=== PATIENT | female | born 1940 | race Caucasian/White ===

== ENCOUNTER 2016-10-27 08:24 | Inpatient (IN) ==
[2016-10-27] MEDS ORDERED: ASPIRIN PO STA (08:53)
[2016-10-27 09:33] LABS: MANUAL DIFF NEEDED? NO
--- NOTE | 2016-10-27 09:34 | Diag Imaging Result Doc PS360 ---
EXAM: CHEST-PORTABLE HISTORY: CP TECHNIQUE: AP portable upright chest at 0900 COMMENT: There are sternotomy wires. The lungs appear to be clear and stable since 07/03/2015. IMPRESSION: Stable chest. Electronically signed by Joseph Patel 10/27/2016 9:31 AM
--- NOTE | 2016-10-27 09:42 | EKG Report ---
Test Performed on : 10/27/2016 08:29:52 AM Test Reason : cp Blood Pressure : / mmHG Vent. Rate : 083 BPM Atrial Rate : 083 BPM P-R Int : 168 ms QRS Dur : 120 ms QT Int : 404 ms P-R-T Axes : 078 -34 078 degrees QTc Int : 474 ms Sinus rhythm. with premature supraventricular complexes. Left axis deviation Nonspecific intraventricular conduction delay Abnormal ECG No previous ECGs available Unconfirmed Result
[2016-10-27 09:48] LABS: PROTIME 10.5 Seconds (9.2-11.7); PTT 27.3 Seconds (22.0-36.0)
[2016-10-27 09:50] LABS: URINE CULTURE NEEDED? NO; URINE MICRO REVIEW NEEDED? NO; URINE SOURCE CLEAN CATCH
[2016-10-27 09:51] LABS: ALBUMIN 4.2 g/dL (3.5-5.0); CALCIUM 9.2 mg/dL (8.8-10.2); MAGNESIUM 1.9 mg/dL (1.5-2.7); POTASSIUM 4.5 mmol/L (3.5-5.1); TOTAL BILIRUBIN 0.61 mg/dL (0.20-1.00); TOTAL PROTEIN 7.3 g/dL (6.3-8.3)
[2016-10-27 09:56] LABS: BASO% 0.7 % (0.0-0.8); EOS# 0.17 X1000 (0.0-0.7); EOS% 2.5 % (0.0-10.0); HEMOGLOBIN 12.6 g/dL (12.0-16.0); LYMPH# 1.58 X1000 (1.2-3.4); LYMPH% 23.7 % (20.5-51.1); MCH 32.1 PG (27-31); MCHC 33.2 g/dL (33-37); MCV 96.9 FL (81-99); MONO# 0.77 X1000 (0.11-0.59); MONO% 11.5 % (1.7-9.3); MPV 10.2 FL (7.4-10.4); NEUT% 61.6 % (42.2-75.2); PLT 181 X1000 (130-400); RBC 3.92 XMIL (4.2-5.4)
[2016-10-27 10:00] LABS: BILIRUBIN URINE NEGATIVE (NEGATIVE); BLOOD URINE SMALL (NEGATIVE); COLOR YELLOW; GLUCOSE URINE NEGATIVE (NEGATIVE); LEUKOCYTES URINE NEGATIVE (NEGATIVE); NITRITE URINE NEGATIVE (NEGATIVE); PROTEIN URINE NEGATIVE (NEGATIVE); SP GRAVITY URINE 1.006; TURBIDITY URINE CLEAR (CLEAR); UROBILINOGEN URINE NORMAL (NORMAL)
[2016-10-27 10:02] LABS: UR EPITHELIAL CELLS <10 /HPF (<10); URINE BACTERIA 1+ /HPF; URINE RBC <10 /HPF (<10); URINE WBC <10 /HPF (<10)
[2016-10-27 10:07] LABS: CK INDEX 2.6 (0.0-2.5); CK-MB 4.91 ng/mL (0.0-5.0)
[2016-10-27] MEDS ORDERED: LOPRESSOR IV ONE (10:17)
--- NOTE | 2016-10-27 10:19 | PROVIDER DOCUMENTATION ---
This chart was entered by Saravanan Zhou Scribe, acting as scribe for Yarely Cervantes MD. HPI-Chest Pain - General Chief Complaint: Chest Pain Stated Complaint: CP,TIGNHTNESS,BACK,ARM,NECK PAIN Time Seen by Provider: 10/27/16 08:43 Source: patient Allergies/Adverse Reactions: Patient Allergies Allergy/AdvReac Type Severity Reaction Status Date / Time hydrocodone bitartrate * Allergy SWELLING Verified 10/27/16 09:01 [From Lorcet (hydrocodone)] morphine Allergy SWELLING Verified 10/27/16 09:01 oxycodone HCl * Allergy SWELLING Verified 10/27/16 09:01 [From Percocet] Sulfa (Sulfonamide Allergy SHORTNESS Verified 10/27/16 09:01 Antibiotics) OF BREATH Home Medications: Home Medication List Medication Instructions Recorded Confirmed Last Taken Type Aspirin [[place]och Aspirin] 81 mg PO DAILY 07/03/15 10/27/16 10/26/16 09:00 History Clonazepam 0.5 mg PO HS 07/03/15 10/27/16 10/26/16 20:00 History Estrogen/Methyltestosterone 1 each PO DAILY 07/03/15 10/27/16 10/26/16 09:00 History [Estratest] Flecainide Acetate 50 mg PO BID 07/03/15 10/27/16 10/26/16 18:00 History Nabumetone [Relafen] 750 mg PO DAILY 07/03/15 10/27/16 10/26/16 09:00 History Cyclobenzaprine HCl [Flexeril] 5 mg PO PRN PRN 10/27/16 10/27/16 Unknown History Losartan [Cozaar] 25 mg PO DAILY 10/27/16 10/27/16 10/26/16 09:00 History Nebivolol [Bystolic] 5 mg PO DAILY 10/27/16 10/27/16 10/26/16 09:00 History Pantoprazole Sodium [Protonix] 40 mg PO DAILY 10/27/16 10/27/16 10/26/16 09:00 History - History of Present Illness-CP Nature of Presenting Problem: Patient is a 75 y/o F that presents to the ER with chest pain ( substernal) that radiates to her neck. Initial symptoms began 2 weeks ago while patient was exercising in the pool. [place] a dull,tight pain. Patient reports some shortness of breath. Symptoms went away after a few minutes. She began to have the same symptoms one week ago( intermitted). This am they became worse ( around 630am.) . She still has pain but has started to relieve itself. Location: reports: substernal Chest Pain Radiation: reports: neck Quality of Pain: reports: aching, tightness Severity in ED: moderate Onset/Duration: abrupt, other (2 weeks) Timing: still present, intermittent, getting worse (this am around 630am) Context/Activities at Onset: reports: light activity Modifying Factors: worse with: exercise Associated Symptoms: reports: shortness of breath. denies: back pain, diaphoresis, edema, fatigue, fever/chills, nausea, vomiting Nitro Today/Relief: no nitro taken today Aspirin Treatment Today: 325 mg x 1, provided by ED Prior Chest Pain/Cardiac Workup: reports: other (open heart and ablation) Recently Seen Here or By Another Healthcare Provider: No Review of Systems - Adult - REVIEW OF SYSTEMS - ADULT Constitutional: denies: chills, fever Eyes: reports: no symptoms reported Ears, Nose, Mouth & Throat: denies: sinus problem, throat pain Cardiovascular: reports: chest pain. denies: palpitations Respiratory: reports: shortness of breath. denies: cough, wheezing Gastrointestinal: denies: abdominal pain, nausea, vomiting Genitourinary: reports: no symptoms reported Musculoskeletal: reports: neck pain. denies: back pain, joint pain Integumentary: reports: no symptoms reported Neurological: denies: dizziness/vertigo, headache/migraines, syncope Psychiatric: reports: no symptoms reported Endocrine: reports: no symptoms reported Hematologic/Lymphatic: reports: no symptoms reported Allergic/Immunologic: reports: no symptoms reported All Other Systems: Reviewed and Negative Past History - Adult - PAST MEDICAL HISTORY-ADULT Review of Records: reports: Old Records Reviewed, Nursing Assessment Review, Medications Reviewed Cardiovascular: reports: A-Fib, arrhythmia (WPW), HTN - PRIOR SURGERIES/PROCEDURES Surgical/Procedure History: reports: appendectomy, cholecystectomy, hysterectomy , hernia repair, orthopedic (extremity), joint replacement, other (cardiac ablation, open heart, retina repair, d&c, cataract) - IMMUNIZATION STATUS Childhood Immunizations: See Nurse Assessment Flu Vaccine: See Nurse Assessment - FAMILY HISTORY Family History: reviewed, not pertinent - SOCIAL HISTORY Smoking: non-smoker Living Situation: family Physical Exam-General - PHYSICAL EXAM-ADULT Initial Vital Signs Reviewed: Yes - CONSTITUTIONAL General Appearance: alert, no apparent distress - EYES Eyes: PERRL/EOMI, pink conjunctivae - HEAD, EARS, NOSE, MOUTH & THROAT HENMT: normocephalic/atraumatic, moist mucous membranes, normal ENT inspection - NECK Neck: full range of motion, normal inspection - RESPIRATORY Respiratory: chest non-tender, lungs clear, normal breath sounds, no respiratory distress, no accessory muscle use, other (well healed midline surgical scar) - CARDIOVASCULAR Cardiovascular: regular rate, rhythm, no edema, no murmur - GASTROINTESTINAL (ABDOMEN) Abdominal Exam: normal bowel sounds, non tender, soft, no organomegaly, no pulsatile mass - MUSCULOSKELETAL Extremity: normal range of motion, normal inspection, no pedal edema, no calf tenderness, normal capillary refill - SKIN Integumentary: normal color, warm/dry - NEUROLOGIC 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, no motor/sensory deficits - PSYCHIATRIC Psych/Mental Status: normal mood/affect, normal thought content, normal thought process, oriented x 3 Progress - PLAN OF CARE/RESULTS Progress/Plan/Lab Results: Vital Signs - 8 hr 10/27/16 08:27 10/27/16 09:00 10/27/16 10:04 Temperature 97.7 F Pulse Rate 76 77 73 Respiratory Rate 22 24 14 Blood Pressure 210/61 197/85 182/91 O2 Sat by Pulse Oximetry 100 99 98 Laboratory Results - last 24 hr 10/27/16 10/27/16 10/27/16 09:13 09:13 09:13 WBC 6.68 RBC 3.92 L Hgb 12.6 Hct 38.0 MCV 96.9 MCH 32.1 H MCHC 33.2 RDW Std Deviation 13.1 Plt Count 181 MPV 10.2 Immature Gran % (Auto) 0.0 Neut % (Auto) 61.6 Lymph % (Auto) 23.7 Lane % (Auto) 11.5 H Eos % (Auto) 2.5 Baso % (Auto) 0.7 Immature Gran # (Auto) 0.00 Neut # (Auto) 4.11 Lymph # (Auto) 1.58 Lane # (Auto) 0.77 H Eos # (Auto) 0.17 Baso # (Auto) 0.05 PT INR PTT (Actin FS) Sodium 139 Potassium 4.5 Chloride 100 Carbon Dioxide 25 Anion Gap 14 BUN 15 Creatinine 1.2 H Estimated GFR/1.73 m2 44 BUN/Creatinine Ratio 13 Glucose 101 Calculated Osmolality 279 Calcium 9.2 Magnesium 1.9 Total Bilirubin 0.61 AST 25 ALT 18 Alkaline Phosphatase 95 Creatine Kinase 191 H Creatine Kinase Index 2.6 H CK-MB (CK-2) 4.91 Troponin T Tem-R-Girsdvdqouf Pept 339 Total Protein 7.3 Albumin 4.2 Globulin 3.1 Albumin/Globulin Ratio 1.4 Lipase 67 H Urine Source Urine Color Urine Turbidity Urine pH Ur Specific [place] Urine Protein Ur Glucose (Stick) Ur Ketones (Stick) Urine Blood Urine Nitrite Urine Bilirubin Urobilinogen Dipstick Urine Leukocytes Urine WBC (Auto) Urine RBC (Auto) U Epithel Cells (Auto) Urine Bacteria (Auto) 10/27/16 10/27/16 10/27/16 09:13 09:13 09:41 WBC RBC Hgb Hct MCV MCH MCHC RDW Std Deviation Plt Count MPV Immature Gran % (Auto) Neut % (Auto) Lymph % (Auto) Lane % (Auto) Eos % (Auto) Baso % (Auto) Immature Gran # (Auto) Neut # (Auto) Lymph # (Auto) Lane # (Auto) Eos # (Auto) Baso # (Auto) PT 10.5 INR 1.00 PTT (Actin FS) 27.3 Sodium Potassium Chloride Carbon Dioxide Anion Gap BUN Creatinine Estimated GFR/1.73 m2 BUN/Creatinine Ratio Glucose Calculated Osmolality Calcium Magnesium Total Bilirubin AST ALT Alkaline Phosphatase Creatine Kinase Creatine Kinase Index CK-MB (CK-2) Troponin T < 0.010 Zsd-[id number]-Xubwcgintvg Pept Total Protein Albumin Globulin Albumin/Globulin Ratio Lipase Urine Source CLEAN CATCH Urine Color YELLOW Urine Turbidity CLEAR Urine pH 7.0 Ur Specific [place] 1.006 Urine Protein NEGATIVE Ur Glucose (Stick) NEGATIVE Ur Ketones (Stick) NEGATIVE Urine Blood SMALL A Urine Nitrite NEGATIVE Urine Bilirubin NEGATIVE Urobilinogen Dipstick NORMAL Urine Leukocytes NEGATIVE Urine WBC (Auto) <10 Urine RBC (Auto) <10 U Epithel Cells (Auto) <10 Urine Bacteria (Auto) 1+ Orders Category Date Time Status Cardiac Monitoring DIRECTED Care 10/27/16 08:53 Active Saline Loc NOW Care 10/27/16 08:53 Active CHEST-PORTABLE [RAD] Stat Exams 10/27/16 08:53 Completed CBC WITH ELECTRONIC DIFF [HEME] Stat Lab 10/27/16 09:13 Completed CK PROFILE [SP CHEM] Stat Lab 10/27/16 09:13 Completed COMPREHENSIVE METABOLIC PANEL [CHEM] Stat Lab 10/27/16 09:13 Completed LIPASE [CHEM] Stat Lab 10/27/16 09:13 Completed MAGNESIUM [CHEM] Stat Lab 10/27/16 09:13 Completed PRO B-NATRIURETIC PEPTIDE Stat Lab 10/27/16 09:13 Completed PROTIME WITH INR [COAG] Stat Lab 10/27/16 09:13 Completed PTT [COAG] Stat Lab 10/27/16 09:13 Completed TROPONIN T Stat Lab 10/27/16 09:13 Completed UA NIMS W/REFLEX CULT [URINALYSIS] Stat Lab 10/27/16 09:41 Completed Aspirin Med 10/27/16 08:53 Discontinued 325 mg PO STAT STA Metoprolol [Lopressor] Med 10/27/16 10:17 Once 5 mg IV NOW ONE EKG [EKG] Stat Ther 10/27/16 08:26 Draft Result Diagrams: 10/27/16 09:13 10/27/16 09:13 - EKG 1 Time of EKG reading by physician:: 08:29 EKG Read and Signed by:: Yarely Cervantes EKG Interpretation (*Must complete 3 of following elements*): Abnormal Rate: 83 Rhythm: Sinus Rhythm with PSVCs [place]: left QRS: NSIVCD UT Interval: normal - XRAY 1 XRAY Study: Chest Impression: Normal XRAY Interpretation: stable chest - CONSULTS/PCP/HOSPITALIST Notification #1 *Consult/PCP/Hospitalist*: Paige/Geovani Time Discussed: 10:18 Consult Disposition: Will see in ED, Admit Departure - Departure Date of Disposition Decision: 10/27/16 Time of Disposition Decision: 10:18 DIAGNOSIS: Chest pain Disposition: ADMITTED INPATIENT 09 Certified Medical Emergency: Emergent Condition: Stable Referrals and Follow-Ups: Carson Singh MD [Primary Care Provider] - - Critical Care Note This patient required my direct & personal management of CC.: No This chart was documented by the indicated scribe, (Saravanan Zhou, Scribe) and accurately reflects the services I performed and decisions made by me, Yarely Cervantes MD, as attested by the provider's signature.
[2016-10-27] MEDS ORDERED: NITROGLYCERIN TOP ONE (11:01)
[2016-10-27] MEDS ORDERED: NITROGLYCERIN SL PRN (11:01)
[2016-10-27] MEDS ORDERED: ZOFRAN IV PRN (11:01)
[2016-10-27] MEDS ORDERED: FLEXERIL PO PRN (11:01)
[2016-10-27] MEDS ORDERED: APRESOLINE IV ONE (11:01)
[2016-10-27] MEDS: COZAAR PO SCH (12:05)
[2016-10-27] MEDS: TAMBOCOR PO SCH ×2 (12:05→20:33)
[2016-10-27] MEDS: BYSTOLIC PO SCH (12:05)
[2016-10-27] MEDS: PROTONIX PO SCH (12:05)
[2016-10-27] MEDS: TYLENOL PO PRN (12:12)
--- NOTE | 2016-10-27 12:42 | HISTORY AND PHYSICAL ---
PRIMARY CARE PROVIDER: Carson Singh MD. CHIEF COMPLAINT: Chest pain. HISTORY OF PRESENT ILLNESS: Ms. Jonnie Lyon is a 75-year-old, female with a medical history of WPW, atrial flutter with 3 ablations in the past. History of hypertension, who now presents with complaints of chest pain. Apparently, this originally started 2 weeks ago during water aerobics. She developed chest pain that radiated to the arms and in her back. She said it improved within 30 minutes after stopping her water aerobics. Again, it returned about a week ago with chest pain that radiated down the arms, back and jaw. A little dizziness at that time, which also improved with rest. Then approximately 0630 this morning, she was awoken by chest pain that radiated down the left arm, up the left side of her neck and into her back. She did have dizziness and some shortness of breath that was associated. No nausea, vomiting or diaphoresis. Her pain at that time was a 7/10. The pain is continuous, but has improved since she has gotten up, and continues to ache. Currently is a 4/10. Again, no nausea, vomiting. No diaphoresis. She does have some spells of what she considers reflux or GERD. Will admit to the [facility]. There is a possibility of starting Cardene or nitroglycerin drip given the continued elevated blood pressure. She has been running anywhere from 180s to 200s. She has not received her morning medications. So those will be given. Hydralazine is being given and a nitroglycerin paste, but continues to be elevated. Cardiology has been consulted. 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 GERD, atrial flutter paroxysmal, anemia and arthritis. SURGICAL HISTORY: Hysterectomy, tubal ligation. Three D and C's. Appendectomy, cholecystectomy, bladder surgery, laser surgery. Sinus surgery x3: Hole in her retina, repaired. Bilateral cataracts, trigger finger, right knee replacement. 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 She has had ablation of the AV node reentry for atrial flutter in 1994 and she has had ablation for WPW again in 1999. Her last stress test and echocardiogram was June 2015. She has had a back surgery. SOCIAL HISTORY: Denies tobacco or alcohol. Denies illicit drug use. She has been for 60 years. Lives in [place] with her . FAMILY HISTORY: Heart disease throughout. Mother at the age of 91, but she had heart disease and myocardial infarction. Father at the age of 72. He also had CAD and myocardial infarction. Brother at the age of 68 had a myocardial infarction, received 2 stents. Sister, and her age is in the 60s, whose sister had CAD and 3 stents. REVIEW OF SYSTEMS: Fourteen-point review of systems were complete. All were negative except those mentioned above in HPI. ALLERGIES: Hydrocodone, morphine, oxycodone, sulfa. HOME MEDICATIONS: Aspirin 81 mg p.o. daily. Clonazepam 0.5 mg p.o. nightly. Flexeril 5 mg p.o. p.r.n., Estrogen once daily, flecainide 50 mg p.o. twice daily, losartan 25 mg p.o. daily. Relafen 750 mg p.o. daily, Bystolic 5 mg p.o. daily. Protonix 40 mg p.o. daily. Her. PHYSICAL EXAMINATION: VITAL SIGNS: Temperature 97.7, heart rate 62, respiratory rate 15, blood pressure 202/80, O2 saturation 97% on room air. GENERAL: Ms. Jonnie Lyon is a 75-year-old, female who is in no acute distress. She is able to answer questions appropriately. HEENT: Atraumatic, normocephalic. Pupils equal, round, reactive to light. Extraocular movements intact. Mucous membranes are moist. NECK: No JVD or carotid bruits noted. CARDIOVASCULAR: S1, S2. Regular rate and rhythm. No rubs, gallops, murmurs. PULMONARY: Clear to auscultation. Bilateral breath sounds. No accessory muscle use or work of breathing noted. Currently on room air. GI: Soft, nontender, nondistended. Positive bowel sounds x4. EXTREMITIES: No edema noted. +2 radial pulses. +2 dorsalis pedal pulses. NEUROLOGIC: Alert and oriented x4. Moves all extremities equally. SKIN: Warm, dry, intact. LABORATORY DATA: White blood cells 6000, hemoglobin 12, hematocrit 38, platelet count 181. INR is 1. PTT is 27.3. Sodium 139, potassium 4.5, BUN 15, creatinine is 1.2, glucose 101, calcium 9.2, magnesium 1.9. Bilirubin 0.61. AST 25, ALT 18. CK 191, CK index 2.6. CK MB is 4.91. Troponins less than 0.01. ProBNP is 339. Total protein 7.3, lipase is 67. Urinalysis small amount of blood, 1+ bacteria. Otherwise negative. IMAGING: Chest x-ray stable chest. Sternotomy wires stable. Lungs are clear. Heart is not enlarged. EKG is normal sinus rhythm. Rate is 83, QTc is 474. No ST elevations noted. There is a left axis deviation. ASSESSMENT AND PLAN: 1. Chest pain. Rule out acute coronary syndrome. Currently no ST elevations on the chest x-ray. The CK index is slightly elevated 2.6. Troponin is negative. This is on the first set of cardiac enzymes. Will repeat cardiac enzymes every 8 hours. She has received 325 mg p.o. of aspirin. She will have nitroglycerin tabs and paste for chest pain. She is allergic to morphine. Will consider starting a nitroglycerin drip for chest pain as she is also hypertensive. Will check a lipid panel and hemoglobin A1c. Other risk factors, she has multiple family members, first relatives, that have had cardiac disease requiring stents. She is a nonsmoker and her BMI is 30.4. Will consult cardiology for further work up. 2. History of Sfcix-Ztpucpkjd-Niwhy since age of 12, along with atrial flutter. Currently, she is sinus rhythm. She has had 3 ablations in the past. Will continue her flecainide and her beta dorene for heart rate control. 3. Hypertensive urgency. She has been running 190s to 200s. Morning medications given that she did not receive at home. She received losartan 25 mg, Bystolic 5 mg and she received a 1 time dose of hydralazine 10 mg and a 1 time dose of metoprolol 5 mg, but continues to remain in the 190s to 200s. So will likely start nitroglycerin drip for hypertension and for complaints of chest pain. 4. Gastroesophageal reflux disease. She does have frequent bouts of GERD. She takes Protonix at home and will continue that. 5. Arthritis. She has Tylenol. 6. History of anemia, but it is stable at this time. 7. Gastrointestinal prophylaxis, again proton pump inhibitor. 8. Deep venous thrombosis prophylaxis. Lovenox. Dictated by ZION Duong for John Olivo MD cc: ZION Duong MD John V. Irle, MD
--- NOTE | 2016-10-27 15:54 | ECHO REPORT ---
ORDER DATE: 10/27/2016 INDICATION: Chest pain, hypertension, shortness of breath. FINDINGS: 1. Right atrium is normal size at 3.3 cm. 2. There is mild tricuspid regurgitation. RV systolic pressure of 33. 3. Normal RV size and systolic function. 4. Trace pulmonic insufficiency. 5. Normal left atrial size at 3.4 cm. 6. No mitral valve prolapse. Mild mitral regurgitation. 7. Normal LV size, end-diastolic dimension of 4.1. Normal wall thicknesses with a posterior and interventricular septal wall thickness 0.8 cm each. Normal LV systolic function with an estimated EF of 65%. 8. Aortic valve opens well and appears trileaflet. There is mild aortic insufficiency with no evidence of stenosis. 9. Aorta appears normal in visualized segments. 10. No pericardial effusion seen. 11. There did appear to be some evidence for some AV pauses occurring during the course. The longest visualized was only 2.5 seconds. cc: MD Dominique Bishop CRNP
[2016-10-27] MEDS: KLONOPIN PO SCH (20:33)
[2016-10-28 03:35] LABS: MANUAL DIFF NEEDED? NO
[2016-10-28 03:40] LABS: BASO% 0.9 % (0.0-0.8); EOS# 0.15 X1000 (0.0-0.7); EOS% 2.3 % (0.0-10.0); HEMATOCRIT 36.8 % (37.0-47.0); HEMOGLOBIN 12.2 g/dL (12.0-16.0); IMM GRAN# 0.02 X1000 (0.0-0.04); IMM GRAN% 0.3 % (0.0-0.5); LYMPH# 1.67 X1000 (1.2-3.4); LYMPH% 25.6 % (20.5-51.1); MCH 32.4 PG (27-31); MCHC 33.2 g/dL (33-37); MCV 97.6 FL (81-99); MONO# 0.69 X1000 (0.11-0.59); MONO% 10.6 % (1.7-9.3); MPV 9.6 FL (7.4-10.4); NEUT% 60.3 % (42.2-75.2); PLT 188 X1000 (130-400); RBC 3.77 XMIL (4.2-5.4)
[2016-10-28 03:50] LABS: HEMOGLOBIN A1C 5.5 % (4.8-6.0)
[2016-10-28 03:59] LABS: AGAP 14; ALBUMIN 4.1 g/dL (3.5-5.0); ALKALINE PHOSPHATASE 91 U/L (32-104); BUN 18 mg/dL (8-22); CALCIUM 8.5 mg/dL (8.8-10.2); CHLORIDE 100 mmol/L (98-107); COSMO 281; GOT 25 U/L (10-30); GPT 18 U/L (10-36); HDL 54 mg/dL (45-65); LDL 110 mg/dL; MAGNESIUM 1.9 mg/dL (1.5-2.7); POTASSIUM 4.3 mmol/L (3.5-5.1); SODIUM 140 mmol/L (136-145); TCO2 26 mmol/L (25-35); TOTAL BILIRUBIN 0.66 mg/dL (0.20-1.00); TOTAL PROTEIN 6.7 g/dL (6.3-8.3); TRIGLYCERIDES 104 mg/dL (35-135); VLDL 21 mg/dL
[2016-10-28 04:00] LABS: INR 1.02; PROTIME 10.7 Seconds (9.2-11.7); PTT 27.9 Seconds (22.0-36.0)
--- NOTE | 2016-10-28 04:56 | CONSULTATION ---
DATE OF CONSULTATION: 10/27/2016 IMPRESSION: 1. Episodic chest discomfort with mixed features for myocardial ischemia. Consider also gastroesophageal reflux. 2. Hypertension. 3. Status post surgical ablation for Hsakg-Sznwgvjhz-Qtwix in 1986. 4. Status post ablation for atrial flutter. 5. Status post repeat catheter ablation of Knjbo-Lnjouizkj-Hbuyb in 1999. 6. Last stress myocardial perfusion study. 7. Recurrent arrhythmia, unspecified, for which patient is receiving flecainide. Presumably, this may be recurrent atrial flutter or fibrillation. Records not available. RECOMMENDATIONS: Screen for coronary disease with stress myocardial perfusion imaging. Patient has knee replacement and is not able to exercise well on a treadmill. Therefore, we will use Lexiscan sestamibi. HISTORY: This 75-year-old, white female with a past history of previous surgical ablation for Ukdss-Yyptpbwlk-Noemd, previous ablation for atrial flutter, another ablation with catheter for WPW, and hypertension was admitted for further evaluation of chest discomfort. She relates having recurrent chest discomfort for the past 2 weeks. Initial episode was experienced when she was doing water aerobics. She describes chest pressure that radiated to her back. It lasted approximately 30 minutes while she was doing water aerobics. Discomfort dissipated after she stopped exercising. She had another episode this past Wednesday. Characterizes chest pressure that radiated to both arms. Discomfort lasted from 9 p.m. to about 2 a.m. continuously. She has had further chest pressure that prompted her to come to the emergency room. For the last 2 days, she added Prilosec to her Pepcid, thinking that this might be related to her gastroesophageal reflux. Her symptoms have not yet abated. She last had stress testing about a year ago with what sounds like a Lexiscan sestamibi study at [facility] prior to knee replacement surgery. PAST MEDICAL HISTORY: 1. Surgical Fkxbx-Syjwlvutd-Tjffz ablation at [facility] in 1986. 2. Atrial flutter ablation in 1994. 3. Catheter ablation of WPW in 1999. 4. Hypertension. 5. Gastroesophageal reflux. 6. Recurrent arrhythmia, unspecified, for which patient has been treated with flecainide. Presumably, this is paroxysmal atrial fibrillation or possibly atrial flutter. PAST SURGICAL HISTORY: Includes unspecified sinus surgery, unspecified lumbar back surgery, cholecystectomy, hysterectomy, appendectomy, and right knee replacement. ALLERGIES: She is allergic or intolerant to hydrocodone, morphine, oxycodone, and sulfa. MEDICATIONS: As listed. SOCIAL HISTORY: She does not smoke nor use alcohol. She has been for 60 years. FAMILY HISTORY: Negative for premature coronary disease. She has several relatives with coronary disease with onset of manifestation in the 7th decade. REVIEW OF SYSTEMS: Pulmonary: Negative. Gastrointestinal: Negative.: Constitutional: Negative. Remainder of review of systems is negative with 14 total systems reviewed. PHYSICAL EXAMINATION: General: This is a pleasant, older, white female, in no distress. Vital Signs: As recorded are stable. HEENT Examination: Extraocular movements appear intact. Mucous membranes are moist. Neck: Supple without jugular venous distention. There are no carotid bruits. Chest: Clear to auscultation. Cardiac Examination: Reveals a regular rate and rhythm without appreciable murmur or gallop. Abdomen: Soft, nontender. Bowel sounds are normal. Extremities: Without edema. Neurologic Examination: Reveals her to be alert and fully oriented. Speech is fluent. She moves all 4 extremities equally well. Skin: Warm and dry. Psychiatric Examination: Reveals her mood to be appropriate. DIAGNOSTIC DATA: ECG demonstrates sinus rhythm with occasional premature supraventricular complex, left axis deviation, nonspecific interventricular conduction abnormality, and nonspecific ST abnormality. cc: Willard Zuñiga MD
[2016-10-28] MEDS: LOVENOX SUBQ SCH (08:52)
[2016-10-28] MEDS: ESTRATEST PO SCH (08:52)
[2016-10-28] MEDS: PROTONIX PO SCH (08:52)
[2016-10-28] MEDS: ASPIRIN PO SCH (08:52)
[2016-10-28] MEDS: TYLENOL PO PRN (08:57)
--- NOTE | 2016-10-28 09:36 | EKG Report ---
Test Performed on : 10/28/2016 07:29:31 AM Test Reason : chest pain Blood Pressure : / mmHG Vent. Rate : 064 BPM Atrial Rate : 064 BPM P-R Int : 194 ms QRS Dur : 120 ms QT Int : 462 ms P-R-T Axes : 074 -16 046 degrees QTc Int : 476 ms Normal sinus rhythm. with sinus arrhythmia. Nonspecific intraventricular conduction delay Borderline ECG When compared with ECG of 27-OCT-2016 08:29, (Unconfirmed) premature supraventricular complexes. are no longer present Confirmed by Saba Velasco MD ([id number]) on 10/28/2016 12:49:28 PM
--- NOTE | 2016-10-28 11:38 | PROGRESS NOTE ---
DATE: 10/28/2016 SUBJECTIVE: Ms Lyon had a good night. She still has a little bit of chest discomfort but not as much as yesterday, not as severe. No shortness of breath. No palpitations. OBJECTIVE: Vital signs: Today temp 98.0 degrees, pulse 63, respirations 18, blood pressure 115/58. O2 saturation is 97%. Respiratory: Lungs are clear in all lung gavin. Cardiovascular: Regular rhythm and rate without murmur or S3. Abdomen: Soft, nontender. Skin: Warm and dry. LAB: White count 6,520, hematocrit 36, platelet count 188,000. Chemistry: Sodium 140, potassium 4.3, chloride 100, bicarb 26, BUN 18, creatinine 1.2. Troponin has remained less than 0.01. ASSESSMENT AND PLAN: 1. EKG demonstrates sinus rhythm, occasional premature supraventricular complexes, left axis deviation, nonspecific intraventricular conduction abnormality. The patient has had a surgical WolffParkinsonWhite ablation at [facility] in 1986. Atrial flutter ablation in 1994. Catheter ablation of Hbyki-Tiauosnep-Ygmpn in 1999. Atypical chest pain. Scheduled for a nuclear stress test today. 2. Blood pressures look good. cc: John Olivo MD
[2016-10-28] MEDS ORDERED: LEXISCAN ONE (13:06)
[2016-10-28] MEDS ORDERED: AMINOPHYLLINE ONE (13:35)
[2016-10-28] MEDS: BYSTOLIC PO SCH (14:17)
[2016-10-28] MEDS: TAMBOCOR PO SCH (14:18)
[2016-10-28] MEDS: COZAAR PO SCH (14:18)
--- NOTE | 2016-10-28 20:15 | Diag Imaging Result Document ---
PROCEDURE NAME: MYOCARDIAL PERF SCAN, STR/REST - 10/27/2016 STUDY: Rest-stress Lexiscan myocardial perfusion study. INDICATION: Patient with chest pain, hypertension. Coronary heart disease is being evaluated. DESCRIPTION: The patient came into the [facility] on October 28, received a rest injection of technetium 99 sestamibi 12.8 millicuries. Multiple tomographic views of the cardiac structure were obtained at rest. Subsequently the patient underwent infusion of Lexiscan 0.4 mg per protocol. At peak infusion, injected with technetium 99 sestamibi 35.6 millicuries. Multiple tomographic views of the cardiac structure were obtained following the completion of the protocol. SUMMARY OF ELECTROCARDIOGRAPHIC PORTION OF STUDY: Resting electrocardiogram shows sinus rhythm, rate 61 beats per minute. Resting blood pressure 190/83. Resting ECG shows a left anterior fascicular block with incomplete right bundle. During the Lexiscan infusion, the patient's blood pressure went up to 222/81. The patient reported chest pain, severe, 9/10 in intensity, radiating to the back that improved after aminophylline. The ECG showed no significant changes. Following the infusion and administration of aminophylline and nitroglycerin, the patient's symptoms disappeared. ECG showed no significant abnormality during the recovery phase. IMPRESSION: In summary, the electrocardiographic response to infusion of Lexiscan is negative for ischemia, however, the patient reported severe symptoms in conjunction or in association with a very severe hypertensive response. SUMMARY OF MYOCARDIAL PERFUSION PORTION OF STUDY: Poststress tomographic views of the left ventricle showed a very subtle decreased uptake of radiotracer in the basal to mid inferolateral wall of the left ventricle. This is very trivial and it could just be all due to artifact from intense subdiaphragmatic uptake of radiotracer. The rest images showed normal perfusion. The polar plots revealed the same. There is a very subtle decreased uptake of radiotracer in the basal to mid inferolateral wall of the left ventricle. Again, this is potentially artifactual in nature. It involves a relatively small area of myocardium. Gated SPECT shows hyperdynamic left ventricle. Ejection fraction 81% with small ventricular volumes. Lung-heart ratio is normal. TID is normal. IMPRESSION: In summary, this study shows: 1. Markedly hypertensive response to a Lexiscan protocol. 2. Probably normal poststress myocardial perfusion scan. There is a trivial reversible defect in the basal to mid inferolateral wall of the left ventricle that may be artifactual. Again, possibility of ischemia cannot be entirely excluded. The amount of myocardium at jeopardy is very small. 3. Hyperdynamic left ventricle. Ejection fraction 81% with normal ventricular volumes. No wall motion abnormality. Clinical correlation is strongly recommended. cc: MD Willard Bess MD
[2016-10-28] MEDS: KLONOPIN PO SCH (21:00)
[2016-10-29] MEDS ORDERED: TAMBOCOR PO SCH (06:00)
[2016-10-29] MEDS: ASPIRIN PO SCH (08:14)
[2016-10-29] MEDS: PROTONIX PO SCH (08:14)
[2016-10-29] MEDS: ESTRATEST PO SCH (08:15)
[2016-10-29] MEDS: BYSTOLIC PO SCH (08:15)
[2016-10-29] MEDS: LOVENOX SUBQ SCH (08:15)
[2016-10-29] MEDS: COZAAR PO SCH (08:15)
--- NOTE | 2016-10-29 12:51 | PROGRESS NOTE ---
DATE: 10/29/2016 SUBJECTIVE: Myocardial perfusion scan done on the . She has markedly hypertensive response to the Lexiscan protocol, probably normal post-stress myocardial perfusion scan. There was trivial reversible defect in the basal, mid, inferolateral and left ventricle that may be artifactual. Possibility of ischemia could be entirely excluded. Hyperdynamic left ventricle. Ejection fraction 81%. OBJECTIVE: General: On her exam today she says she has felt some palpitations. When she gets palpitations, she has some chest discomfort. Vital Signs: Afebrile with temp 97.6 degrees, pulse 67, respirations 16, blood pressure 141/56. HEENT: CVP less than 6 cm. Lungs: Clear in all lung gavin. Cardiovascular exam: Regular rhythm and rate without murmur or S3. Abdomen: Soft. Skin: Warm and dry. : Urine output 1200 mL. LAB: Reviewed from yesterday revealed electrolytes look good. ProBNP was 644. DIAGNOSTICS: EKG revealed normal sinus rhythm, nonspecific interventricular conduction delay, ST segments unremarkable. ASSESSMENT AND PLAN: 1. Palpitations, atypical chest pain, nonspecific intraventricular conduction delay. She has had a history of Fpdob-Luxbshqaz-Nokdi and several procedures, atrial flutter ablation, and I think ablation on two occasions for Mesnz-Fthsahiiv-Ipvlj. Nuclear scan done. 2. Blood pressures. She had hypertensive response on Lexiscan. Her blood pressures look pretty good, but may want to make some adjustments on those medications and see what cardiology wants to do. MEDICATIONS: 1. She is on Protonix 40 mg a day. 2. Bystolic 5 mg daily. 3. Cozaar 25 mg a day. 4. Flecainide 50 mg b.i.d. 5. We have her on the Lovenox 30 mg subcutaneously q. 24 hours as prophylactic. 6. Klonopin 0.5 mg at bedtime. 7. Aspirin 325 mg a day. We will discuss with cardiology. cc: John Olivo MD
--- NOTE | 2016-10-29 15:03 | PROGRESS NOTE ---
DATE: 10/29/2016 SUBJECTIVE: Patient continues without further chest discomfort. She does relate some episodes of palpitations and awareness of irregular heartbeat or skipping. OBJECTIVE: Vital Signs: Blood pressure 141/56 with a heart rate of 67. Review of telemetry shows sinus rhythm with episodes of abrupt transition to sinus arrest with ectopic atrial bradycardia these last 2 seconds or so. Neck: Supple without jugular venous distention. Chest: Clear to auscultation. Cardiac Exam: Reveals a regular rate and rhythm without appreciable murmur or gallop. There is no evidence of peripheral edema. Lexiscan sestamibi study reviewed and demonstrates no convincing scintigraphic evidence of inducible myocardial ischemia. Left ventricular ejection fraction is normal. Recent echocardiography demonstrates normal left ventricular dimensions and ejection fraction of 65%. There is mild tricuspid regurgitation. There is mild aortic regurgitation. There is mild mitral regurgitation. IMPRESSIONS: 1. Recent episodic chest discomfort with mixed features but predominantly atypical. No objective evidence of myocardial ischemia. Stress myocardial perfusion study negative for inducible myocardial ischemia. Suspect chest discomfort more likely noncardiac. 2. Sinus node dysfunction. Evident on review of telemetry. Patient feeling episodes of palpitations, probably correlating with transition from sinus rhythm to ectopic atrial bradycardia as an escape rhythm. There is no history of syncope. 3. Hypertension. 4. History of previous surgical ablation for Njiyc-Tmqxayquw-Yrkut in 1986. 5. Status post ablation of atrial flutter. 6. Status post repeat catheter ablation of Vcrww-Kenjeytqm-Zwntu in 1999. 7. Recent unspecified arrhythmias for which patient was started on flecainide. Records not available. RECOMMENDATIONS: 1. Given apparent sinus node dysfunction would discontinue Bystolic. Recommend also discontinuing flecainide. 2. Early next week obtain 48 hour Holter to reassess patient from an arrhythmia standpoint. We will arrange for EP/arrhythmia clinic follow-up thereafter. She may potentially need a permanent pacemaker on an elective basis. 3. Reasonable to discharge the patient to home later today. Will continue losartan as well as aspirin. 4. Would continue proton pump inhibitor for management of gastroesophageal reflux which is probably the culprit for her chest symptoms. cc: Willard Zuñiga MD
[2016-10-29 17:02] VITALS: BP 127/55
--- NOTE | 2016-10-29 17:22 | DISCHARGE SUMMARY ---
ADMISSION DATE: 10/27/2016 DISCHARGE DATE: 10/30/2016 FOLLOWED BY: Carson Singh MD HOSPITAL COURSE: This is a 75-year-old female with history of Vtusu-Xnxpuyjxk-Hcqbk, atrial flutter. She has had 3 ablations I think in the past. History of hypertension, presented with complaint of chest pain that originally started 2 weeks ago during aerobics. Developed some chest pain radiating to her arms and her back. She said improved about 30 minutes after stopping water aerobics. Again returned about a week ago with chest pain. It radiated down her arms, back and jaw. A little dizziness at that time which also improved with rest. Approximately 6:30 in the morning she was awoken with chest pain radiating down the left arm, up the left side of her neck and her back. She did have dizziness and some shortness of breath associated. No nausea, vomiting, diaphoresis. The pain at that time was 7/10. Pain was continuous, but improved since she has gotten up, but has a continued ache to it, currently 4/10 on admission. Again, no nausea, vomiting or diaphoresis. She does have some spells of what she considers gastroesophageal reflux. She was admitted to [facility] and they started some Cardene and nitroglycerin drip given her elevated systolic pressures in 180s and 100s. Enzymes were negative and Cardiology was consulted, Dr. Willard Zuñiga. She has a history of surgical Nnbqn-Dsdbnfgpm-Qxmak ablation at [facility] in 1986, atrial flutter ablation in 1994, catheter ablation of Paphs-Dafdowufm-Wasvh in 1999. The EKG demonstrated sinus rhythm. Occasional premature supraventricular complexes. Left axis deviation, nonspecific intraventricular conduction abnormality nonspecific ST-T abnormality. Myocardial perfusion scan was done on 10/27/2016. Markedly hypertensive response to Lexiscan protocol. Probably normal test, myocardial perfusion scan, she had trivial reversible defect in the basal to mid inferior wall of the left ventricle, may be artifactual. Hyperdynamic left ventricle. Ejection fraction was 81%. Looking at the monitor strips, Dr. Zuñiga felt given the appearance, some questionable sinus node, she had episodes of palpitations. She has had episodes of sinus node dysfunction and it seemed to correlate from transition from sinus node to ectopic atrial bradycardia and escape rhythm. So felt she should discontinue the Bystolic and wanted to discontinue flecainide and set up for 48 hour Holter monitor and may need a permanent pacemaker based on her results. [place] it was reasonable to discharge her today, continue losartan. Stop the flecainide and Bystolic. DISCHARGE MEDICATION: Aspirin 325 daily, Klonopin 0.5 mg at bedtime, Flexeril 5 mg t.i.d. p.r.n., Estratest 1 daily, Cozaar 25 mg daily, Protonix 40 mg daily. DISCHARGE INSTRUCTIONS: Follow up with the doctor in a couple of weeks. Holter monitor. cc: John Olivo MD
== END 2016-10-29 18:40 | disposition home or self-care (01) ==
LOC: ED 08:24 → EDIPHOLD 11:09 → 3S 13:11
PROVIDERS: ATTEND Emergency Medicine

== ENCOUNTER 2017-01-13 00:44 | Inpatient (IN) ==
[2017-01-06 08:50] LABS: MANUAL DIFF NEEDED? NO; URINE MICRO REVIEW NEEDED? NO; URINE SOURCE CLEAN CATCH
[2017-01-06 08:54] LABS: BASO% 0.4 % (0.0-0.8); EOS# 0.22 X1000 (0.0-0.7); EOS% 3.2 % (0.0-10.0); HEMATOCRIT 37.1 % (37.0-47.0); HEMOGLOBIN 12.2 g/dL (12.0-16.0); IMM GRAN# 0.04 X1000 (0.0-0.04); IMM GRAN% 0.6 % (0.0-0.5); LYMPH# 1.68 X1000 (1.2-3.4); LYMPH% 24.1 % (20.5-51.1); MCHC 32.9 g/dL (33-37); MCV 100.3 FL (81-99); MONO# 0.64 X1000 (0.11-0.59); MONO% 9.2 % (1.7-9.3); NEUT% 62.5 % (42.2-75.2); PLT 219 X1000 (130-400)
[2017-01-06 09:07] LABS: INR 1.01; PROTIME 10.6 Seconds (9.2-11.7); PTT 27.5 Seconds (22.0-36.0)
[2017-01-06 09:26] LABS: BILIRUBIN URINE NEGATIVE (NEGATIVE); BLOOD URINE SMALL (NEGATIVE); GLUCOSE URINE NEGATIVE (NEGATIVE); LEUKOCYTES URINE SMALL (NEGATIVE); NITRITE URINE NEGATIVE (NEGATIVE); PROTEIN URINE NEGATIVE (NEGATIVE); URINE WBC <10 /HPF (<10); UROBILINOGEN URINE NORMAL (NORMAL)
[2017-01-06 09:27] LABS: COLOR YELLOW; TURBIDITY URINE CLEAR (CLEAR); UR EPITHELIAL CELLS >10 /HPF (<10); URINE BACTERIA 1+ /HPF; URINE RBC <10 /HPF (<10)
--- NOTE | 2017-01-06 09:35 | EKG Report ---
Test Performed on : 01/06/2017 08:28:44 AM Test Reason : [facility] Blood Pressure : / mmHG Vent. Rate : 068 BPM Atrial Rate : 068 BPM P-R Int : 168 ms QRS Dur : 126 ms QT Int : 428 ms P-R-T Axes : 091 -21 083 degrees QTc Int : 455 ms Normal sinus rhythm. with sinus arrhythmia. Nonspecific intraventricular block Abnormal ECG When compared with ECG of 28-OCT-2016 07:29, No significant change was found Confirmed by Ridge Sparks MD ([id number]) on 01/06/2017 8:31:39 PM
[2017-01-06 09:46] LABS: CALCIUM 8.7 mg/dL (8.8-10.2); POTASSIUM 4.1 mmol/L (3.5-5.1)
[2017-01-13] MEDS ORDERED: REGLAN ONE (09:27)
[2017-01-13] MEDS ORDERED: LYRICA ONE (09:27)
[2017-01-13] MEDS ORDERED: KEFZOL 2 GM/D5W 2 GM/50 ML IVPB ONE (09:27)
[2017-01-13] MEDS ORDERED: PEPCID ONE (09:27)
[2017-01-13] MEDS ORDERED: COLACE ONE (09:27)
[2017-01-13] MEDS ORDERED: LR 1,000 ML ONE (09:27)
[2017-01-13] MEDS ORDERED: DIPRIVAN 1% 500 MG/50 ML BOTTLE ONE (11:12)
[2017-01-13] MEDS ORDERED: VERSED ONE (11:17)
[2017-01-13] MEDS ORDERED: FENTANYL ONE (11:18)
[2017-01-13] MEDS ORDERED: DURAMORPH ONE (11:19)
[2017-01-13] MEDS ORDERED: VANCOMYCIN ONE (11:20)
[2017-01-13] MEDS ORDERED: MARCAINE 0.25% PF ONE (11:20)
[2017-01-13] MEDS ORDERED: CYKLOKAPRON 1,000 MG/NS 1,000 MG/100 ML IVPB ONE ×2 (11:20→11:22)
[2017-01-13] MEDS ORDERED: TORADOL ONE (11:20)
[2017-01-13] MEDS ORDERED: SODIUM CHLORIDE 0.9% ONE (11:20)
[2017-01-13] MEDS ORDERED: EXPAREL 1.3% ONE (11:21)
[2017-01-13] MEDS ORDERED: NEOSPORIN G.U. IRRIGANT ONE (11:21)
[2017-01-13] MEDS ORDERED: ZOFRAN ONE (11:52)
[2017-01-13] MEDS ORDERED: OFIRMEV 1000 MG/ISOTONIC SOLN 1,000 MG/100 ML BOTTLE ONE (11:52)
[2017-01-13] MEDS ORDERED: DECADRON ONE (11:52)
[2017-01-13] MEDS ORDERED: STERILE WATER INJ. ONE (12:37)
[2017-01-13] MEDS ORDERED: ROBINUL ONE (12:45)
[2017-01-13] MEDS ORDERED: NS 1,000 ML ONE (13:50)
[2017-01-13 13:57] LABS: URINE MICRO REVIEW NEEDED? NO; URINE SOURCE CATH
[2017-01-13 14:10] LABS: BILIRUBIN URINE NEGATIVE (NEGATIVE); BLOOD URINE SMALL (NEGATIVE); COLOR YELLOW; GLUCOSE URINE NEGATIVE (NEGATIVE); LEUKOCYTES URINE NEGATIVE (NEGATIVE); NITRITE URINE NEGATIVE (NEGATIVE); PH URINE 5.5; PROTEIN URINE NEGATIVE (NEGATIVE); SP GRAVITY URINE 1.008; TURBIDITY URINE CLEAR (CLEAR); UROBILINOGEN URINE NORMAL (NORMAL)
[2017-01-13 14:12] LABS: UR EPITHELIAL CELLS <10 /HPF (<10); URINE BACTERIA NEGATIVE /HPF; URINE RBC <10 /HPF (<10); URINE WBC <10 /HPF (<10)
--- NOTE | 2017-01-13 14:27 | Diag Imaging Result Doc PS360 ---
KNEE 1-2 VIEWS-LEFT - 01/13/2017 INDICATION: post op TECHNIQUE: Two views COMPARISON: None FINDINGS: There is been left total knee arthroplasty with patellar resurfacing. Alignment is anatomic. No hardware fracture or loosening. IMPRESSION: No complication. Electronically signed by Joey Castillo 01/13/2017 2:25 PM
[2017-01-13] MEDS ORDERED: NS 1,000 ML IV SCH (16:00)
[2017-01-13] MEDS ORDERED: ZOFRAN IV PRN (16:00)
[2017-01-13] MEDS ORDERED: ZOFRAN PO PRN (16:00)
[2017-01-13] MEDS ORDERED: DILAUDID IV PRN (16:00)
[2017-01-13] MEDS ORDERED: MILK OF MAGNESIA PO PRN (16:00)
[2017-01-13] MEDS: COZAAR PO SCH (16:53)
[2017-01-13] MEDS: RELAFEN PO SCH (16:54)
[2017-01-13] MEDS ORDERED: FLUZONE QUAD 2017-2018 SYRINGE IM ONE (17:01)
[2017-01-13] MEDS: TYLENOL PO SCH (17:14)
[2017-01-13] MEDS: PRILOSEC PO SCH (17:14)
[2017-01-13] MEDS: DEMEROL PO PRN (21:19)
[2017-01-13] MEDS: PERIDEX MT SCH (21:19)
[2017-01-13] MEDS: PEPCID PO SCH (21:19)
[2017-01-13] MEDS: KEFZOL 2 GM/D5W 2 GM/50 ML IVPB IV SCH (21:19)
[2017-01-13] MEDS: KLONOPIN PO SCH (21:20)
[2017-01-13] MEDS: TAMBOCOR PO SCH (21:20)
[2017-01-13] MEDS: COLACE PO SCH (21:20)
[2017-01-14] MEDS: TYLENOL PO SCH ×5 (02:32→23:56)
[2017-01-14] MEDS: DEMEROL PO PRN ×5 (02:46→23:56)
--- NOTE | 2017-01-14 03:34 | OPERATIVE NOTE ---
PROCEDURE DATE: 01/13/2017 PREOPERATIVE DIAGNOSIS: Degenerative osteoarthritis of the left knee. POSTOPERATIVE DIAGNOSIS: Degenerative osteoarthritis of the left knee. PROCEDURE PERFORMED: Left total knee arthroplasty with DePuy Attune size 5 narrow posterior stabilized femur, a size 5 tibial tray, a 5 mm rotating platform tibial insert, and a 35 mm medialized anatomic patella. SURGEON: Joel Petersen MD. DINING ROOM ATTENDANT: RADHA Souza, who was present for throughout the case and was critical for wound exposure, assistance with preparation of the bone for implants, implantation of the prosthesis, and wound closure. Her assistance was critical for increasing efficiency and decreasing anesthesia time. SECOND BARREL BURNER: Jeff Villasenor RN. ANESTHESIA: Spinal. IV FLUIDS: 2100 mL of lactated Ringer's. ESTIMATED BLOOD LOSS: 75 mL. TOURNIQUET TIME: 90 minutes at 350 mmHg. COMPLICATIONS: None. INDICATIONS: The patient is a pleasant, 76-year-old female with a chronic history of worsening pain and discomfort of the left knee. She had continued pain and discomfort despite appropriate nonoperative treatment. X-rays revealed degenerative osteoarthritis. A recommendation to proceed with left total knee arthroplasty was offered. Risks and benefits of surgery were explained including the risks of anesthesia, , bleeding, infection, failure to relieve pain, postoperative stiffness, nerve injury, blood clots, and other imponderables. All questions were answered. The patient and family wished to proceed with surgery. DETAILS OF OPERATION: The patient was taken to the operating room and placed supine on the operating table. Once adequate anesthesia was obtained, the patient's left lower extremity was subsequently prepped and draped in the usual sterile fashion. Esmarch was used to exsanguinate the left lower extremity and the tourniquet was inflated to 350 mmHg. A standard anterior incision was made with a skin knife. Medial and lateral skin envelopes were developed. Patella fat pad was excised. Retractors were then placed. Approximately 1 cm anterior to the PCL insertion, a starting reamer was passed. Intramedullary guide with a distal femoral cutting block was pinned in position. The distal femoral cut was then performed in standard fashion. A sizing block was placed and measured size 5. Corresponding pins were placed. A size 5 cutting block was then placed in position. The anterior, posterior, and chamfer cuts were then made where further resection of the ACL and PCL was performed. Using the extramedullary guide, the proximal tibia cutting block was pinned in position. Had good alignment confirmed with the alignment shweta. The proximal tibia was then resected in a standard fashion. Medial and lateral menisci were excised. A curved osteotome was used to remove the posterior osteophytes off the distal femur. A spacer block was placed and good soft tissue balance with flexion and extension. Attention was then turned to the proximal tibia once again. A size 5 tibial tray appeared to be the correct size. This was pinned in position. This was followed by a central reamer and a fin punch. A box cutting guide was then placed on the distal femur. A box cut was performed. Trial femoral component was placed and 2 lug holes were drilled. A trial tibial insert was then placed and had good soft tissue balancing. Patella was everted and resected in a standard fashion. A size 35 appeared to be the correct size. Corresponding holes were drilled. A trial patella component was then placed in position and had good patellofemoral tracking. The trial components were then removed. Copious irrigation was then performed once again with antibiotic pulsatile lavage while vancomycin was mixed with cement on the back table. Sequential cementing was then performed, first with the tibial tray and excess cement was removed with a Mead, followed by the femoral component and excess cement was removed with a Mead, followed by the tibial insert in full extension. Axial loading was maintained while cement cured. Patella component was cemented in standard fashion. Patella clamp was placed. Exparel was placed in the deep soft tissue, as well as subcutaneous tissue while cement was curing. After the cement had cured, peripheral cement was removed with a small osteotome. The 5 mm rotating platform tibial insert appeared to be the correct size. This was then removed. Trial component was removed. Exparel was placed in the deep posterior capsule. The wound was copiously irrigated once again with antibiotic pulsatile lavage. A 5 mm rotating platform tibial insert was then placed and had good soft tissue balancing, good range of motion, and good patellofemoral tracking. A 1/8 Hemovac drain was placed and was not sewn in. The wound was copiously irrigated once again with antibiotic pulsatile lavage. Then #1 Vicryl was used to repair the arthrotomy, followed by 2-0 Vicryl to repair the subcutaneous tissue, and skin sukhjinder. Adaptic sterile 4 x 4s, Webril, a cryo unit, and Gamal wrap were applied to the left lower extremity. Patient tolerated the procedure well with no complications and was transferred to the recovery room in stable condition. cc: Joel Petersen MD MTDD
[2017-01-14] MEDS: KEFZOL 2 GM/D5W 2 GM/50 ML IVPB IV SCH (04:33)
[2017-01-14] MEDS: XARELTO PO SCH (06:02)
[2017-01-14] MEDS: PRILOSEC PO SCH (06:02)
[2017-01-14 06:06] LABS: HEMATOCRIT 30.2 % (37.0-47.0)
[2017-01-14] MEDS ORDERED: MISC. PHARMACY COMMUNICATION SCH (06:15)
[2017-01-14] MEDS ORDERED: NON-FORMULARY BULK MED PO PRN (06:19)
[2017-01-14 06:42] LABS: POTASSIUM 4.6 mmol/L (3.5-5.1)
--- NOTE | 2017-01-14 08:09 | PROGRESS NOTE ---
DATE: 01/14/2017 SUBJECTIVE: The patient is a pleasant 76-year-old female who is one day status post left total knee arthroplasty. She is currently resting comfortably. OBJECTIVE/PHYSICAL EXAMINATION: The patient's left lower extremity dressing is intact. Her calf is soft. She has active dorsiflexion and plantar flexion. She is neurovascularly intact distally. LABORATORY DATA: Hemoglobin is 10.0, hematocrit is 30.2. IMPRESSION: Postop day #1 status post left total knee arthroplasty. PLAN: At this point, we will change her dressing and discontinue her drain and Johansen. We will also Hep-Lock her IV. We will mobilize physical therapy. We will consult [facility] [employer] for inpatient rehabilitation. cc: Joel Petersen MD
[2017-01-14] MEDS: PERIDEX MT SCH ×2 (10:11→22:03)
[2017-01-14] MEDS: TAMBOCOR PO SCH ×2 (10:12→22:02)
[2017-01-14] MEDS: COLACE PO SCH ×2 (10:12→22:02)
[2017-01-14] MEDS: COZAAR PO SCH (10:13)
[2017-01-14] MEDS: RELAFEN PO SCH (10:13)
[2017-01-14] MEDS: ESTRATEST PO SCH (10:54)
[2017-01-14] MEDS: KLONOPIN PO SCH (22:02)
[2017-01-14] MEDS: PEPCID PO SCH (22:02)
[2017-01-15] MEDS: DEMEROL PO PRN ×3 (05:41→19:22)
[2017-01-15] MEDS: TYLENOL PO SCH ×4 (05:41→23:27)
[2017-01-15] MEDS: PRILOSEC PO SCH ×2 (05:41→06:04)
[2017-01-15] MEDS: XARELTO PO SCH (05:41)
[2017-01-15 05:42] LABS: HEMOGLOBIN 8.3 g/dL (12.0-16.0)
--- NOTE | 2017-01-15 07:53 | PROGRESS NOTE ---
DATE: 01/15/2017 SUBJECTIVE: Patient is a 76-year-old female who is 2 days status post left total knee arthroplasty. The patient has had expected discomfort through the night. OBJECTIVE: Left lower extremity: Her wound looks good. There is no signs or symptoms of infection. She has expected swelling, some evidence of ecchymosis. Calf is soft. She has active dorsiflexion and plantar flexion. Her hemoglobin is 8.3, hematocrit 25.0. IMPRESSION: Postoperative day #2, status post left total knee arthroplasty. PLAN: At this point, we will continue mobilize with physical therapy. Discharge planning has been consulted for inpatient rehabilitation. Plan on discharging to rehab tomorrow if a bed is available. cc: Joel Petersen MD
[2017-01-15] MEDS: TAMBOCOR PO SCH ×2 (10:27→23:26)
[2017-01-15] MEDS: COLACE PO SCH ×2 (10:27→23:26)
[2017-01-15] MEDS: ESTRATEST PO SCH (10:28)
[2017-01-15] MEDS: COZAAR PO SCH (10:28)
[2017-01-15] MEDS: RELAFEN PO SCH (10:29)
[2017-01-15] MEDS: PERIDEX MT SCH ×2 (10:29→23:28)
--- NOTE | 2017-01-15 10:38 | Diag Imaging Result Doc PS360 ---
EXAM: CHEST-1 VIEW INDICATION: rehab TECHNIQUE: One view COMPARISON: 10/27/2016 FINDINGS: The lungs are grossly clear. There is no discrete pleural fluid collection or pneumothorax. There are stable median sternotomy wires. Cardiac silhouette is grossly unremarkable. IMPRESSION: Stable chest with no definite acute pathology. Electronically signed by Carson Gardner 01/15/2017 10:36 AM
--- NOTE | 2017-01-15 11:16 | DISCHARGE SUMMARY ---
ADMISSION DATE: 01/13/2017 DISCHARGE DATE: 01/16/2017 ADMITTING DIAGNOSIS: Degenerative osteoarthritis of left knee. DISCHARGE DIAGNOSES: 1. Degenerative osteoarthritis of left knee, status post left total knee arthroplasty. 2. Acute blood loss anemia. BRIEF HISTORY: Patient is a pleasant 76-year-old female, who presents with a chronic history of worsening pain and discomfort of her left knee. Continued pain and discomfort despite appropriate nonoperative treatment. X-rays revealed degenerative arthritis. Recommendation to proceed with left total knee arthroplasty was offered. Risks and benefits of surgery were explained, including the risks of anesthesia, , bleeding, infection, failure to relieve pain, postop stiffness, nerve injury, blood clots, and other imponderables. All questions were answered. The patient and family wished to proceed with surgery. HOSPITAL COURSE AND TREATMENT: The patient was admitted to the hospital and underwent left total knee arthroplasty. Patient tolerated the procedure well. She had an uneventful postoperative course. By postoperative day #2, her hemoglobin and hematocrit stabilized at 8.3 and 25.0. Prior to discharge, the patient is afebrile tolerating her diet. Pain was well controlled with p.o. medication. Her wound looked good. There is no signs or symptoms of infection. It is felt the patient would benefit from inpatient rehabilitation. The patient and family agreeable to this. DISCHARGE MEDICATIONS: 1. Meperidine 50 mg 1-2 p.o. q.4 hours p.r.n. pain. 2. Xarelto 10 mg p.o. daily, x2 weeks. 3. For remaining medications, please see medication list. DISCHARGE INSTRUCTIONS: 1. Patient is to be discharged for inpatient rehabilitation. 2. Consult physical therapy with gait training with full weightbearing left lower extremity and range of motion per total knee protocol. 3. DC sukhjinder in 11 days. 4. Follow up in the office in 3-4 weeks. cc: Joel Petersen MD
[2017-01-15] MEDS: KLONOPIN PO SCH (23:27)
[2017-01-15] MEDS: PEPCID PO SCH (23:27)
[2017-01-16 05:38] LABS: HEMATOCRIT 25.3 % (37.0-47.0); HEMOGLOBIN 8.2 g/dL (12.0-16.0)
[2017-01-16] MEDS: TYLENOL PO SCH (06:18)
[2017-01-16] MEDS: XARELTO PO SCH (06:18)
[2017-01-16] MEDS: PRILOSEC PO SCH (06:18)
[2017-01-16 08:38] VITALS: BP 153/40
[2017-01-16] MEDS: PERIDEX MT SCH (09:14)
[2017-01-16] MEDS: RELAFEN PO SCH (09:15)
[2017-01-16] MEDS: COZAAR PO SCH (09:15)
[2017-01-16] MEDS: TAMBOCOR PO SCH (09:16)
[2017-01-16] MEDS: COLACE PO SCH (09:16)
--- NOTE | 2017-01-16 11:59 | PROGRESS NOTE ---
DATE: 01/16/2017 Ms. Lyon is seen today status post right total knee replacement. At the present time, she is afebrile with stable vital signs. She is transferred to inpatient rehab today. She will follow up with Dr. Petersen upon discharge. cc: MD Joel De Leon MD
== END 2017-01-16 13:29 ==
LOC: SURHOLD 00:44 → 4N 12:15
PROVIDERS: ADMIT Orthopaedic Surgery Adult Reconstructive Orthopaedic Surgery; ATTEND Orthopaedic Surgery Adult Reconstructive Orthopaedic Surgery